=== PATIENT | female | born 1995 | race Caucasian/White ===

== ENCOUNTER 2017-06-28 14:24 | Emergency (ER) | payer MEDICAID ==
[2017-06-28 14:37] VITALS: RESP 18; TEMP 98.8; O2SAT 96
--- NOTE | 2017-06-28 15:09 | EDPHY ---
H & P Stated Complaint: rt side abd pain Time Seen by Provider: 06/28/17 14:49 HPI/ROS: CHIEF COMPLAINT: Right sided abdominal pain HISTORY OF PRESENT ILLNESS: 21-year-old female arrives via private vehicle complaining of 3 days of intermittent right lower quadrant pain . Sometimes the pain will feels it is radiating from the right flank. Positive diarrhea. No nausea no vomiting. No melena or hematochezia. No untreated water. No urinary abnormality such as hematuria, dysuria REVIEW OF SYSTEMS: A ten point review of systems was performed and is negative with the exception of the items mentioned in the HPI PAST MEDICAL & SURGICAL HISTORY: IUD placement March 2017 SOCIAL HISTORY: nonsmoker PHYSICAL EXAM (Prior to examination, patient consented to physical exam, hands were washed and my usual and customary physical exam procedures followed) 1) GENERAL: Well-developed, well-nourished, alert and oriented. Appears to be in no acute distress. 2) HEAD: Normocephalic, atraumatic 3) HEENT: Pupils equal, round, reactive to light bilaterally. Sclera anicteric. 4) NECK: Full range of motion, no meningeal signs. 5) LUNGS: Clear auscultation bilaterally, no wheezes, no rhonchi, no retractions. 6) HEART: Regular rate and rhythm, no murmur, no heave, no gallop. 7) ABDOMEN: Tender to palpation at McBurney's point, negative Shelton's, negative Rovsing's, negative peritoneal sign, 8) MUSCULOSKELETAL: Moving all extremities, no focal areas of tenderness, no obvious trauma. No peripheral edema or discoloration. 9) BACK: No CVA tenderness, no midline vertebral tenderness, no fluctuance, no step-off, no obvious trauma, no visual or palpable abnormality. 10) SKIN: No rash, no petechiae. 11) Psychiatric: Patient is oriented X 3, there is no agitation. DIFFERENTIAL DIAGNOSIS: In no particular order including but not limited to nephrolithiasis, pyelonephritis, ovarian cyst, ovarian torsion, acute appendicitis, ectopic - Personal History LMP (Females 10-55): IUD In Place Current Tetanus/Diphtheria Vaccine: Yes - Medical/Surgical History Hx Asthma: No Hx Chronic Respiratory Disease: No Hx Diabetes: No Hx Cardiac Disease: No Hx Renal Disease: No Hx Cirrhosis: No Hx Alcoholism: No Hx HIV/AIDS: No Hx Splenectomy or Spleen Trauma: No Other PMH: diverticulitis - Social History Smoking Status: Never smoked Constitutional: Initial Vital Signs Temperature (C) 37.1 C 06/28/17 14:35 Heart Rate 74 06/28/17 14:35 Respiratory Rate 18 06/28/17 14:35 Blood Pressure 119/87 H 06/28/17 14:35 O2 Sat (%) 96 06/28/17 14:35 O2 Delivery Mode Room Air Allergies/Adverse Reactions: No Known Allergies Allergy (Unverified 06/28/17 14:34) Home Medications: Medication Instructions Recorded NK [No Known Home Meds] 06/28/17 Medical Decision Making - Diagnostics Imaging: Discussed imaging studies w/ call center manager Radiologist ED Course/Re-evaluation: 3:15 p.m.: Will obtain urine, blood, ultrasound and re-evaluate 5:05 p.m.: Patient was re-evaluated with serial exams. This time she is smiling, laughing, interactive, has no complaints of pain or discomfort, no nausea or vomiting. Re-examined her abdomen which is soft no guarding or rebound no McBurney's point pain. We discussed her imaging and discussed her diagnostic results. Specifically, regarding her ultrasonography there is no hydronephrosis, she has a nonvisualized appendix and is noted to have a hemorrhagic cyst on the right ovary. This may be the source of her discomfort. Discussed with her possibility of ureterolithiasis however in the absence of pain or hydronephrosis I do not think that CT imaging benefits outweigh the risks. We also discussed that acute appendicitis is not ruled out however in the presence of normal white blood cell count, absence of pain, I think that this is a less than likely option at this time. We discussed options moved forward for diagnostic studies including CT imaging now for acute appendicitis or recheck in 12 hours. She prefers recheck in 12 hours. I think that this is an appropriate option at this time given that she is asymptomatic. We discussed also possibility of intermittent torsion of the ovary and importance of return to the ER immediately if she develops return of symptoms. She feels comfortable being discharged. Usual and customary abdominal precautions instructions provided. - Data Points Laboratory Results: Laboratory Results 06/28/17 15:20 06/28/17 15:20 06/28/17 06/28/17 06/28/17 16:00 15:20 15:20 WBC RBC Hgb Hct MCV MCH MCHC RDW Plt Count MPV Neut % (Auto) Lymph % (Auto) [place] % (Auto) Eos % (Auto) Baso % (Auto) Nucleat RBC Rel Count Absolute Neuts (auto) Absolute Lymphs (auto) Absolute Monos (auto) Absolute Eos (auto) Absolute Basos (auto) Absolute Nucleated RBC Immature Gran % Immature Gran # Sodium 140 mEq/L mEq/L (134-144) Potassium 4.0 mEq/L mEq/L (3.5-5.2) Chloride 106 mEq/L mEq/L (97-110) Carbon Dioxide 22 mEq/l mEq/l (22-31) Anion Gap 12 mEq/L mEq/L (8-16) BUN 11 mg/dL mg/dL (7-23) Creatinine 0.8 mg/dL mg/dL (0.6-1.0) Estimated GFR > 60 Glucose 98 mg/dL mg/dL (70-100) Calcium 9.8 mg/dL mg/dL (8.5-10.4) Total Bilirubin 0.5 mg/dL mg/dL (0.1-1.4) Conjugated Bilirubin 0.2 mg/dL mg/dL (0.0-0.5) Unconjugated Bilirubin 0.3 mg/dL mg/dL (0.0-1.1) AST 23 IU/L IU/L (14-46) ALT 37 IU/L IU/L (9-52) Alkaline Phosphatase 47 IU/L IU/L (38-126) Total Protein 7.4 g/dL g/dL (6.3-8.2) Albumin 4.5 g/dL g/dL (3.5-5.0) Lipase 58 IU/L IU/L (23-300) Beta HCG, Qual NEGATIVE Urine Color PALE YELLOW Urine Appearance CLEAR Urine pH 7.0 (5.0-7.5) Ur Specific [place] 1.003 (1.002-1.030) Urine Protein NEGATIVE (NEGATIVE) Urine Ketones NEGATIVE (NEGATIVE) Urine Blood NEGATIVE (NEGATIVE) Urine Nitrate NEGATIVE (NEGATIVE) Urine Bilirubin NEGATIVE (NEGATIVE) Urine Urobilinogen NEGATIVE EU EU (0.2-1.0) Ur Leukocyte Esterase NEGATIVE (NEGATIVE) Urine RBC NONE SEEN /hpf /hpf (0-3) Urine WBC 1-3 /hpf /hpf (0-3) Ur Epithelial Cells TRACE /lpf /lpf (NONE-1+) Urine Bacteria 4+ /hpf H /hpf (NONE SEEN) Urine Glucose NEGATIVE (NEGATIVE) 06/28/17 15:20 WBC 6.02 10^3/uL 10^3/uL (3.80-9.50) RBC 4.57 10^6/uL 10^6/uL (4.18-5.33) Hgb 14.9 g/dL g/dL (12.6-16.3) Hct 43.2 % % (38.0-47.0) MCV 94.5 fL fL (81.5-99.8) MCH 32.6 pg pg (27.9-34.1) MCHC 34.5 g/dL g/dL (32.4-36.7) RDW 12.3 % % (11.5-15.2) Plt Count 224 10^3/uL 10^3/uL (150-400) MPV 10.8 fL fL (8.7-11.7) Neut % (Auto) 60.8 % % (39.3-74.2) Lymph % (Auto) 29.6 % % (15.0-45.0) [place] % (Auto) 7.6 % % (4.5-13.0) Eos % (Auto) 1.3 % % (0.6-7.6) Baso % (Auto) 0.5 % % (0.3-1.7) Nucleat RBC Rel Count 0.0 % % (0.0-0.2) Absolute Neuts (auto) 3.66 10^3/uL 10^3/uL (1.70-6.50) Absolute Lymphs (auto) 1.78 10^3/uL 10^3/uL (1.00-3.00) Absolute Monos (auto) 0.46 10^3/uL 10^3/uL (0.30-0.80) Absolute Eos (auto) 0.08 10^3/uL 10^3/uL (0.03-0.40) Absolute Basos (auto) 0.03 10^3/uL 10^3/uL (0.02-0.10) Absolute Nucleated RBC 0.00 10^3/uL 10^3/uL (0-0.01) Immature Gran % 0.2 % % (0.0-1.1) Immature Gran # 0.01 10^3/uL 10^3/uL (0.00-0.10) Sodium Potassium Chloride Carbon Dioxide Anion Gap BUN Creatinine Estimated GFR Glucose Calcium Total Bilirubin Conjugated Bilirubin Unconjugated Bilirubin AST ALT Alkaline Phosphatase Total Protein Albumin Lipase Beta HCG, Qual Urine Color Urine Appearance Urine pH Ur Specific [place] Urine Protein Urine Ketones Urine Blood Urine Nitrate Urine Bilirubin Urine Urobilinogen Ur Leukocyte Esterase Urine RBC Urine WBC Ur Epithelial Cells Urine Bacteria Urine Glucose Departure - Departure Disposition: Home, Routine, Self-Care Clinical Impression: Ovarian cyst Qualifiers: Laterality: right Qualified Code(s): N83.201 - Unspecified ovarian cyst, right side Condition: Good Instructions: Ovarian Cyst (ED) Additional Instructions: Seek immediate medical attention if you develop new or worsening symptoms, if you develop fevers, chills, inability to tolerate oral intake or any other symptoms that concerns you. Referrals: Return, to the ER in 12 hours for recheck [Other] - 06/29/17 5:30 am
[2017-06-28 15:35] LABS: % IMMATURE GRANULYOCYTES 0.2 % (0.0-1.1); ABSOLUTE IMMATURE GRANULOCYTES 0.01 10^3/uL (0.00-0.10); ADD DIFF? NO; ADD MORPH? NO; ADD SCAN? NO; ATYPICAL LYMPHOCYTE FLAG 20 (0-99); FRAGMENT RBC FLAG 0 (0-99); HEMATOCRIT 43.2 % (38.0-47.0); HEMOGLOBIN 14.9 g/dL (12.6-16.3); LEFT SHIFT FLG 0 (0-99); LIPEMIA HEMOLYSIS FLAG 90 (0-99); MEAN CELL HEMOGLOBIN 32.6 pg (27.9-34.1); MEAN CELL HEMOGLOBIN CONCENTR. 34.5 g/dL (32.4-36.7); MEAN CELL VOLUME 94.5 fL (81.5-99.8); MEAN PLATELET VOLUME 10.8 fL (8.7-11.7); PLATELET CLUMPS FLAG 10 (0-99); PLATELET COUNT 224 10^3/uL (150-400); RED BLOOD CELL COUNT 4.57 10^6/uL (4.18-5.33); RED CELL DISTRIBUTION WIDTH 12.3 % (11.5-15.2)
[2017-06-28 15:52] LABS: ALANINE AMINOTRANSFERASE 37 IU/L (9-52); ALBUMIN 4.5 g/dL (3.5-5.0); ALKALINE PHOSPHATASE 47 IU/L (38-126); ANION GAP 12 mEq/L (8-16); ASPARTATE AMINOTRANSFERASE 23 IU/L (14-46); BILIRUBIN,TOTAL 0.5 mg/dL (0.1-1.4); BILIRUBIN-CONJUGATED 0.2 mg/dL (0.0-0.5); BILIRUBIN-UNCONJUGATED 0.3 mg/dL (0.0-1.1); CALCIUM 9.8 mg/dL (8.5-10.4); CARBON DIOXIDE 22 mEq/l (22-31); CHLORIDE 106 mEq/L (97-110); CREATININE 0.8 mg/dL (0.6-1.0); GLOMERULAR FILTRATION RATE > 60; GLUCOSE 98 mg/dL (70-100); SODIUM 140 mEq/L (134-144); TOTAL PROTEIN 7.4 g/dL (6.3-8.2)
[2017-06-28 16:12] LABS: COLOR PALE YELLOW; LEUKOCYTE ESTERASE,URINE NEGATIVE (NEGATIVE); NITRITE,URINE NEGATIVE (NEGATIVE)
[2017-06-28 16:18] LABS: BACTERIA 4+ /hpf (NONE SEEN); RBC,URINE NONE SEEN /hpf (0-3)
[2017-06-28 17:21] VITALS: BP 121/71; PULSE 70
== END 2017-06-28 17:21 | disposition home or self-care (01) ==
DX: N83.201 Unspecified ovarian cyst, right side (principal)

== ENCOUNTER → 2017-11-06 | Outpatient (CLI) | payer MEDICAID | LOC: FIMAGING 10:42 | PROVIDERS: ATTEND Nurse Practitioner Women's Health | DX: R10.2 Pelvic and perineal pain (principal); N83.202 Unspecified ovarian cyst, left side; Z97.5 Presence of (intrauterine) contraceptive device ==

== ENCOUNTER 2018-01-02 13:49 | Emergency (ER) | payer MEDICAID ==
--- NOTE | 2018-01-02 16:06 | EDPHY ---
H & P Stated Complaint: loweer abd pain/?ibs hx ovarian cysts Time Seen by Provider: 01/02/18 16:05 HPI/ROS: HPI: This is a 22-year-old female who presents with Chief Complaint: lower abd pain/?ibs hx ovarian cysts Location: Lower abdomen; right greater than left Quality: Pressure and wincing pain Duration: 3-5 hours Signs and Symptoms: no fever, no nausea, no vomiting, no hematemesis, no blood in stool, no abdominal bloating, no diarrhea, no back pain, no urinary symptoms , no vaginal discharge/bleeding, no indigestion, no chest pain, no shortness of breath Timing: Acute, constant Severity: [id number] Context: Patient has a history of IBS, ovarian cysts, diverticulitis presents with complaints of 3-5 hours of lower abdominal pressure and wincing pain worsened with certain position. The pain is greater on the right side than the left side. Finished her menses approximately 3 days ago. Not really passing flatus. Had a bowel movement today. IUD removed by OBGYN in October. has hx of ovarian cyst - feels the same - just wants US to confirm so she can track them. Has not taking any [id number] medications. Has been eating a lot of nuts and peanut butter over the last 2 weeks. PCP working on a diagnosis of mast cell disease; takes Claritin in the morning and Pepcid as well. Modifying Factors: None Comment: ROS: see HPI Constitutional: No fever, no chills, no weight loss Eyes: No blurred vision Respiratory: No shortness of breath, no cough Cardiovascular: No chest pain, no palpitations Gastrointestinal: No nausea, no vomiting, no diarrhea, no hematemesis, no blood in stool Genitourinary: No dysuria, no blood in urine Extremities: No myalgias, no edema Neurologic: No weakness, no numbness Skin: No rashes, no petechiae Hematologic: No bruising, no bleeding MEDICAL/SURGICAL/SOCIAL HISTORY: Medical history: Mast cell disease/diverticulitis/irritable bowel syndrome/ ovarian cyst Surgical history: Denies Social history: Student. CONSTITUTIONAL: Extremely well-appearing young adult white female, sitting up in bed with her legs curled into her chest, awake and alert, no obvious distress HEENT: Atraumatic and normocephalic, PERRL, EOMI. Tympanic membranes clear. Oropharynx clear, no exudate and moist pink mucosa. Airway patent. No lymphadenopathy. No meningismus. Cardiovascular: Normal S1/S2, regular rate, regular rhythm, without murmur rub or gallop. PULMONARY/CHEST: Symmetrical and nontender. Clear to auscultation bilaterally. Good air movement. No accessory muscle usage. ABDOMEN: Soft, nondistended, mild lower abdominal tenderness, no rebound, no guarding, no peritoneal signs, no masses or organomegaly. No CVAT. EXTREMITIES: 2/2 pulses, strength 5/5, no deformities, no clubbing, no cyanosis or edema. NEUROLOGICAL: no focal neuro deficits. GCS 15. SKIN: Warm and dry, no erythema. no rash. Good capillary refill. Source: Patient Exam Limitations: No limitations - Personal History LMP (Females 10-55): 1-7 Days Ago Current Tetanus/Diphtheria Vaccine: Yes - Medical/Surgical History Hx Asthma: No Hx Chronic Respiratory Disease: No Hx Diabetes: No Hx Cardiac Disease: No Hx Renal Disease: No Hx Cirrhosis: No Hx Alcoholism: No Hx HIV/AIDS: No Hx Splenectomy or Spleen Trauma: No Other PMH: diverticulitis/ibs/ovarian cyst - Social History Smoking Status: Never smoked Constitutional: Initial Vital Signs Temperature (C) 36.6 C 01/02/18 13:57 Heart Rate 90 01/02/18 13:57 Respiratory Rate 16 01/02/18 13:57 Blood Pressure 117/76 01/02/18 13:57 O2 Sat (%) 97 01/02/18 13:57 O2 Delivery Mode Room Air Allergies/Adverse Reactions: No Known Allergies Allergy (Verified 01/02/18 13:55) Home Medications: Medication Instructions Recorded Dicyclomine [Bentyl 10 MG (*)] 10 mg PO Q8 PRN #10 cap 01/02/18 Xifaxan 01/02/18 Medical Decision Making - Diagnostics Imaging Results: Imaging Impressions Abdomen Ultrasound 01/02/18 16:07 Impression: The initial visualized aspects of the appendix appeared normal; however, the appendix is incompletely evaluated, with bowel gas obscuring its distal aspect. The patient was not tender while scanning over this area, and there is no free fluid or mesenteric adenitis. If there is further clinical concern regarding the patient's pain, contrast- enhanced CT imaging could be considered. Findings were discussed with Parvin Morataya PA-C at 17:36, on 01/02/2018. Pelvic/Renal Ultrasound 01/02/18 16:07 Impression: Normal exam. Findings were discussed with Parvin Morataya PA-C at 17:36, on 01/02/2018. ED Course/Re-evaluation: Labs, pelvic ultrasound, limited right lower quadrant ultrasound ordered. Patient politely declines any IV or laboratory studies as she is tolerating p.o. And feels that this is related to her ovarian cysts. Patient given p.o. Flexeril and Bentyl 1618: Urinalysis shows 1+ bacteria; asymptomatic; sent for urine culture. Urine is negative 1725: reassessed patient; abdomen soft and nontender. called by radiologist; pelvic ultrasound normal; iud removed when compared to the last ultrasound in October. Dr. Nunez advises that he was able to evaluated shorts and the of the appendix which was normal; no free fluid. The distal portion was unable to be visualized but patient did not complain of pain. After discussion with patient she prefers to go home and if she has any worsening pain she will return to the emergency room for CT abdomen and pelvis scan to further evaluate for appendicitis. This patient was seen under the supervision of my primary supervising physician. I evaluated care for this patient independently. Differential Diagnosis: Abdominal pain in a female including but not limited to ovarian cyst, pelvic inflammatory disease, ovarian torsion, urinary tract infection, and appendicitis. - Data Points Laboratory Results: 01/02/18 01/02/18 15:58 15:58 Urine Color YELLOW Urine Appearance CLEAR Urine pH 7.0 (5.0-7.5) Ur Specific [place] 1.004 (1.002-1.030) Urine Protein NEGATIVE (NEGATIVE) Urine Ketones NEGATIVE (NEGATIVE) Urine Blood NEGATIVE (NEGATIVE) Urine Nitrate NEGATIVE (NEGATIVE) Urine Bilirubin NEGATIVE (NEGATIVE) Urine Urobilinogen NEGATIVE EU EU (0.2-1.0) Ur Leukocyte Esterase NEGATIVE (NEGATIVE) Urine RBC 1-3 /hpf /hpf (0-3) Urine WBC 1-3 /hpf /hpf (0-3) Ur Epithelial Cells TRACE /lpf /lpf (NONE-1+) Urine Bacteria 1+ /hpf H /hpf (NONE SEEN) Urine Mucus TRACE /lpf /lpf (NONE-1+) Urine Glucose NEGATIVE (NEGATIVE) Urine Test NEGATIVE Medications Given: Discontinued Medications Cyclobenzaprine HCl (Flexeril) 10 mg PO EDNOW ONE Stop: 01/02/18 16:17 Last Admin: 01/02/18 16:51 Dose: 10 mg Dicyclomine HCl (Bentyl) 10 mg PO EDNOW ONE Stop: 01/02/18 16:17 Last Admin: 01/02/18 16:51 Dose: 10 mg Departure - Departure Disposition: Home, Routine, Self-Care Clinical Impression: History of ovarian cyst, Irritable bowel Condition: Good Instructions: Ovarian Cyst (ED), Irritable Bowel Syndrome (ED) Additional Instructions: Consume a minimum of 8-10 glasses of water or electrolyte fluid replacement drinks that include Gatorade, Powerade, Pedialyte. Eat a bland diet for the next 48 hours and then slowly advance as tolerated. Take Bentyl every 8 hr as needed for irritable bowel. Take Tylenol 650 mg every 4 hr and/or ibuprofen 800 mg every 8 hr as needed for pain. Return to the Emergency Room if symptoms do not resolve in the next 48-72 hours , you spike a fever > 102 F, or experience intractable abdominal pain/nausea/ vomiting. Referrals: Celia Thrasher NP [Non Staff and Non MD] - As per Instructions Prescriptions: Dicyclomine [Bentyl 10 MG (*)] 10 mg PO Q8 PRN #10 cap PRN Reason: Pain, Moderate
[2018-01-02] MEDS ORDERED: DICYCLOMINE 10 MG CAP PO ONE (16:16)
[2018-01-02] MEDS ORDERED: CYCLOBENZAPRINE 10 MG TAB PO ONE (16:16)
[2018-01-02 18:07] VITALS: BP 103/72; PULSE 68; RESP 16; TEMP 98.4; O2SAT 97
== END 2018-01-02 18:07 | disposition home or self-care (01) ==
DX: K58.9 Irritable bowel syndrome, unspecified (principal); Z87.42 Personal history of other diseases of the female genital tract